=== PATIENT | female | born 2000 | race Caucasian/White ===

== ENCOUNTER 2019-10-30 13:13 | Outpatient (CLI) | payer MEDICAID, SELFPAY ==
--- NOTE | 2019-10-30 13:21 | US_ITS ---
WS: [id number] ULTRASOUND EARLY TECHNIQUE: Transabdominal sonography of the pelvis was performed. Followed by transvaginal sonography to better evaluate the uterus and ovaries. CLINICAL INFORMATION: SUPERVISION OF NORMAL LMP: 08/20/2019 Beta hCG: Unknown. COMPARISON: None. FINDINGS: UTERUS AND GESTATIONAL SAC Intrauterine gestations: Cervix measures 3.4 cm Estimated gestational age: 7w5d Estimated delivery 8 30,020 Yolk sac: 0.2 cm. Christmas rump length (CRL): 1.4 cm. heart motion: 160 BPM. Subchorionic hemorrhage: None. OVARIES Right ovary: Normal. Left ovary: Normal. FREE FLUID None. 2. Estimated gestational age: 7w5d. Estimated delivery 8 30,020 3. Normal cardiac activity. 4. Both ovaries are normal. US/US OB <= 14 weeks fetus [id number] IMPRESSION: 1. Single live intrauterine .
== END 2019-10-30 13:14 | disposition home or self-care (01) ==
LOC: RAD 13:16
PROVIDERS: Family Provider Family Medicine; PCP Family Medicine; Visit Provider Family Medicine
DX: Z34.81 Encounter for supervision of other normal pregnancy, first trimester (principal)
CPT/HCPCS: 76801

== ENCOUNTER 2020-01-25 13:15 | Outpatient (CLI) | payer MEDICAID, SELFPAY ==
--- NOTE | 2020-01-25 13:23 | US_ITS ---
WS: [id number] ULTRASOUND OB COMPLETE TECHNIQUE: Complete ultrasound. CLINICAL INFORMATION: ANATOMY COMPARISON: Ultrasound October 30, 2019 FINDINGS: Cervix measures 4.2 cm Single interuterine gestation is identified with cephalic presentation. Placenta is posterior. Placenta grade 0. Normal amniotic fluid volume. AGA: 20w1d SU by ultrasound: 06/12/2020 Estimated weight: 337 g BDP: 4.6 cm = 19w5d HC: 17.7 cm = 20w1d AC: 14.8 cm = 20w1d FEMUR LENGTH: 3.3 cm = 20w2d Anatomic survey: The nose and lips not well visualized. Anatomic survey is otherwise normal. Normal stomach. Kidneys and bladder are normal. Normal 3 vessel cord. Normal 3 vessel cord insertion. Normal 4 chamber heart. Normal spine. Intracranial contents are normal. Normal posterior fossa and cisterna magna. US/US OB >= 14 weeks fetus [id number] IMPRESSION: 1. Single intrauterine with visualized cardiac activity. AGA 20w1d w ith SU 06/12/2020. 2. Placenta is anterior. No evidence of abruption or previa. 3. Nose and lips not seen. anatomic survey is otherwise normal. Recommen d interval follow-up in 2-3 weeks for additional evaluation. 4. Normal amniotic fluid volume.
== END 2020-01-25 13:16 | disposition home or self-care (01) ==
LOC: RADWPI 13:19
PROVIDERS: Family Provider Family Medicine; PCP Family Medicine; Visit Provider Family Medicine
DX: Z36.89 Encounter for other specified antenatal screening (principal); Z3A.20 20 weeks gestation of pregnancy
CPT/HCPCS: 76805

== ENCOUNTER 2020-03-22 11:04 | Outpatient (CLI) | payer MEDICAID, SELFPAY ==
--- NOTE | 2020-03-22 11:15 | US_ITS ---
WS: [id number] ULTRASOUND OB FOCUSED HISTORY: SUPERVISION NORMAL , MULTIPAROUS COMPARISON: 01/25/2020 Single intrauterine gestation in cephalic presentation. Cervix is closed at 3.7 cm. Placenta is poste rior with no previa or abruption. Placenta grade 1. heart rate at 131 BPM. Additional imaging of the nose and lips demonstrates no abnormality. [place] [id number] IMPRESSION: Normal follow-up ultrasound nose and lips.
== END 2020-03-22 11:05 | disposition home or self-care (01) ==
PROVIDERS: PCP Family Medicine; Visit Provider Family Medicine
DX: Z34.80 Encounter for supervision of other normal pregnancy, unspecified trimester (principal)
CPT/HCPCS: 76816

== ENCOUNTER 2020-05-18 07:37 | Outpatient (CLI) | payer MEDICAID, SELFPAY ==
--- NOTE | 2020-05-18 08:16 | US_ITS ---
WS: [id number] LIMITED OBSTETRICAL ULTRASOUND HISTORY: SUGEY, EFW FOLLOW UP COMPARISON: 03/22/2020, 01/25/2020 and 10/30/2019 Presentation: Cephalic. Cervix: Closed and normal length. Placenta: Posterior and fundal. Grade: 1 HEART: FHR of 150 BPM. measurements: BPD = 9.0 cm = 36w3d HC = 32.1 cm = 36w2d AC = 32.3 cm = 36w1d FL = 7.1 cm = 36w1d SUGEY: 13.1 cm EFW: 2877 g; 65 %. Measurements are internally concordant. Appropriate growth of fetus since the first trimester ultraso und. AGA by ultrasound: 36w2d SU by ultrasound: 06/13/2020 US/US OB limited [id number] IMPRESSION: 1. Single intrauterine gestation of 36 weeks 2 days with an EDC of 06/13/2020. 2. Appropriate growth since the first trimester ultrasound. 3. Estimated weight 2877 g at the 65th percentile.
== END 2020-05-18 07:38 | disposition home or self-care (01) ==
LOC: RAD 07:39
PROVIDERS: PCP Family Medicine; Visit Provider Family Medicine
DX: Z34.93 Encounter for supervision of normal pregnancy, unspecified, third trimester (principal); Z3A.36 36 weeks gestation of pregnancy
CPT/HCPCS: 76815

== ENCOUNTER 2020-06-08 06:11 | Inpatient (IN) | payer MEDICAID, SELFPAY ==
--- NOTE | 2020-05-13 12:42 | ANES.PREANE2 ---
Pre-Anesthetic Assessment Pre-Anesthetic Assessment: Proposed Procedure: Operation Date: 06/08/20 07:20 Proposed Procedures p Section Repeat With Tubal(Not Applicable) - Terence Mayer MD Social: Social History: No alcohol and No tobacco Exam: Pre-Anes Outpt Exam: alert, oriented x 3, clear to auscultation bilaterally and regular rate & rhythm Airway: Submandibular: WNL Cervical ROM: WNL MP: 2 Dentition: Other (teeth ok) History/ROS: No significant complaints Anesthetic Plan: ASA status: 2 Anesthesia: Anesthesia Evaluation, Eval. for regional block, General and Regional (specify below) (SAB or Epidural) Risk of > 500 ml blood loss (7ml/kg in children): Yes, adequate IV access and fluids planned Data Anesthesia Cardiac Studies: No Data to Display
--- NOTE | 2020-05-25 10:09 | ANES.PREANE2 ---
Pre-Anesthetic Assessment Pre-Anesthetic Assessment: Proposed Procedure: Operation Date: 06/08/20 07:00 Proposed Procedures p Section Repeat With Tubal(Not Applicable) - Terence Mayer MD Familial anesthetic complications: None Social: Social History: No alcohol and No tobacco Exam: Pre-Anes Outpt Exam: alert, oriented x 3, clear to auscultation bilaterally and regular rate & rhythm Airway: Cervical ROM: WNL MP: 3 Dentition: Full Anesthetic Plan: ASA status: 2 Anesthesia: Regional (specify below) Other: spinal Risk of > 500 ml blood loss (7ml/kg in children): Yes, adequate IV access and fluids planned Data Anesthesia Cardiac Studies: No Data to Display
[2020-06-08] VITALS (44 sets, daily range): BP systolic 84–142; BP diastolic 51–83; PULSE 72–163; RESP 16–18; TEMP 36.2–37.5; O2SAT 96–100; BMI 32.4
[2020-06-08 07:00] LABS: Basophils # 0.1 10^3/uL (0.0-0.1); Basophils % 0.5 %; Eosinophils # 0.1 10^3/uL (0.0-0.8); Eosinophils % 0.6 %; Hematocrit 34.7 % (37.0-47.0); Hemoglobin 10.8 g/dL (11.5-15.3); Lymphocytes # 3.1 10^3/uL (1.5-6.5); Lymphocytes % 29.6 %; Mean Corpuscular HGB Conc 31.1 g/dL (30.0-36.0); Mean Corpuscular Hemoglobin 25.2 pg (28.0-34.0); Mean Corpuscular Volume 80.9 fL (81-99); Mean Platelet Volume 11.3 fL (7.4-10.4); Monocytes # 0.8 10^3/uL (0.2-0.9); Monocytes % 7.1 %; Neutrophils # 6.51 10^3/uL (1.8-8.0); Nucleated Red Blood Cells % 0 %; Platelet Count 268 10^3/cmm (130-400); Red Blood Count 4.29 10^6/uL (4.1-5.3); Red Cell Distribution Width 18.6 % (12.1-15.1); White Blood Count 10.5 10^3/uL (4.5-13.0)
[2020-06-08] MEDS: lactated ringers 1,000 ML 999 ML IV ×3 (07:04→14:38)
[2020-06-08] MEDS: famotidine 20 mg/2 mL INJ IVP (07:33)
[2020-06-08] MEDS: citric acid-sodium citrate 30 mL UDC PO (07:35)
[2020-06-08] MEDS: metoclopramide 5 mg/mL SDV 2 mL 10 MG IV (07:36)
--- NOTE | 2020-06-08 08:11 | PM.HP ---
Providers/Chief Complaint Admitting Physician: Terence Mayer MD Primary Care Provider: Terence Mayer MD Chief Complaint: C section 06/08/20 History of Present Illness Maria Teresa Taylor is a 19 year old @39.1 weeks gestation by 7-week ultrasound inconsistent with LMP. Her is complicated by history of low transverse section, UTI at 29 weeks, anemia. The patient presents to labor delivery for a scheduled repeat low-transverse section. The patient has been feeling well and denies any chest pains, shortness of breath, headache, fever, nausea, vomiting, leakage of fluid, vaginal bleeding, abdominal pain, dysuria. Medications/Allergies Home Medications Medication Instructions Recorded Confirmed Last Taken Type 19 06/08/20 06/07/20 08:00 History ferrous sulfate [Iron (ferrous 06/08/20 06/07/20 20:00 History sulfate)] Allergies Allergy/AdvReac Type Severity Reaction Status Date / Time No Known Allergies Allergy Verified 06/08/20 06:47 PFSH Acute PFSH: Surgical History (Updated 06/08/20 @ 08:13 by Terence Mayer MD) Previous section Family History (Updated 06/08/20 @ 09:56 by Terence Mayer MD) Sister Lung disease Asthma Social History (Updated 06/08/20 @ 08:13 by Terence Mayer MD) Smoking and tobacco status: never smoked Alcohol intake: never Substance/Drug Use: never Female Reproductive History: : 2 Vitals/I&O/Wt Last Vital Signs Temp 98.2 F 06/08/20 06:00 Resp 16 06/08/20 06:00 BP 142/80 06/08/20 06:00 Weight last 48 hrs Weight 183 lb Physical Exam Narrative: EXAM NARRATIVE: General: Alert and oriented x3 Eyes: Pupils equal round and reactive to light and accommodation Mouth: Mucous membranes moist, pharynx non-erythematous Cardiac: Regular rate and rhythm without murmurs Lungs: Clear to auscultation bilaterally without wheezes, crackles or rhonchi Abdomen: Soft, non-tender, fundus consistent with gestational age Extremities: Trace edema in the bilateral lower extremities Data : 06/08/20 06:53 A&P Assessment and plan (1) Intrauterine : Status: Acute (2) Anxiety: Status: Acute (3) Anemia: Status: Acute Additional A&P Information Maria Teresa Taylor is a 19 year old @39.1 weeks gestation by 7-week ultrasound inconsistent with LMP. Her is complicated by history of low transverse section, UTI at 29 weeks, anemia. The patient presents for a scheduled repeat low-transverse section. She is feeling well at this time. We will proceed with routine care. All questions were answered. Risks and benefits were discussed. The patient is in agreement with the current plan of care. Attestations Medical Necessity Statement*: The patient will be here for greater than two midnights due to routine intrapartum and management of labor and delivery. Coding Level of Care Code Acute [employer] Dispatcher for Chg Fwd Diagnoses Intrauterine Z34.90 Anxiety F41.9 Anemia D64.9
--- NOTE | 2020-06-08 09:18 | P.ANESUD_ITS ---
Pre-Anesthetic Update Pre-Anesthetic Assessment: Date of Surgery/Procedure: 06/08/20 Preop Nikkie gnosis: repeat c section Proposed Procedure: Operation Date: 06/08/20 08:00 Proposed Procedures p Section Repeat With Tubal(Not Applicable) - Terence Mayer MD Any changes to Pre-Anesthetic Assessment?: No Changes from Pre-Anesthetic Assessment: GERD Last Intake: Intake Last Liquid Date 06/07/20 Last Liquid Time 21:00 Last Solid Date 06/07/20 Last Solid Time 18:00 Labs Last 48hrs: Laboratory Results - last 48 hr 06/08/20 06/08/20 06:53 06:53 WBC 10.5 RBC 4.29 Hgb 10.8 L Hct 34.7 L MCV 80.9 L MCH 25.2 L MCHC 31.1 RDW 18.6 H Plt Count 268 MPV 11.3 H Neut % (Auto) 62.0 Lymph % (Auto) 29.6 [place] % (Auto) 7.1 Eos % (Auto) 0.6 Baso % (Auto) 0.5 Neut # (Auto) 6.51 Lymph # (Auto) 3.1 [place] # (Auto) 0.8 Eos # (Auto) 0.1 Baso # (Auto) 0.1 Nucleated RBC % (a uto) 0 Nucleated RBCs # 0.0 Blood Type O Positive Rho(D) Type Positive Vitals: Temperature 98.2 F 06/08/20 06:00 Temperature Source Oral 06/08/20 06:00 Pulse Rhythm 06/08/20 06:21 Pulse Strength 3+ Normal 06/08/20 06:21 Respiratory Rate 16 06/08/20 06:00 Respiratory Effort Non-Labored 06/08/20 06:21 Respiratory Depth Normal 06/08/20 06:21 Respiratory Patter n 06/08/20 06:21 Blood Pressure 142/80 06/08/20 06:00 Blood Pressure Simran n 100 06/08/20 06:00 Blood Pressure Pos ition Sitting 06/08/20 06:00 Oxygen Delivery Me thod 06/08/20 06:21 Exam: Pre-Anes Outpt Exam: alert, oriented x 3, clear to auscultation bilaterally and regular rate & rhythm Additional Exam Findings (including area of procedure): completed prior to c section Cardiac Studies: No Data to Display
--- NOTE | 2020-06-08 09:58 | P.OP_ITS ---
Operative Report Date of procedure: June 08, 2020 Pre-op Diagnosis: repeat c section Pre-op Diagnosis: 1. Intrauterine at 39.1 weeks gestation 2. History of prior low-transverse section 3. UTI at 29 weeks 4. Anemia Post-op Diagnosis: 1. Intrauterine status post repeat low transverse section at 39.1 weeks gestation 2. History of prior low-transverse section 3. UTI at 29 weeks 4. Anemia 5. Delivery of healthy female weighing 7 pounds 8 ounces with Apgars of 9 and 9 Post-op Findings: 1. Intact placenta. 2. Healthy female weighing 7 pounds 8 ounces with Apgars of 9 and 9 Procedure Done: Repeat low transverse section. Removal of prior keloid scar Specimens removed/disposition: Placenta discarded Pathology: none sent Surgeon: Terence Mayer Anesthesia: Other (Spinal) Estimated blood loss (mL): 750 Complications: None Findings: 1. Delivery of healthy infant female weighing 7 pounds 8 ounces with Apgars of 9 and 9 Condition: stable Disposition: floor Brief History: Maria Teresa Taylor is a 19 year old @39.1 weeks gestation by 7-week ultrasound inconsistent with LMP. Her is complicated by history of low transverse section, UTI at 29 weeks, anemia. She presented for a scheduled routine repeat low-transverse section. Procedure: After informed consent was obtained, the patient was taken to the operating room and the patient was prepped and draped in a normal sterile fashion in the dorsal supine position. A spinal epidural was placed and adequate anesthesia was confirmed. At 8:24 AM on 06/08/2020, a Pfannenstiel skin incision was made and carried through to the underlying layer of fascia using a scalpel. The fascial incision was then extended laterally using curved Mayos. The fascia was then grasped with Dewayne clamps and the underlying rectus muscles were dissected off taking care to avoid injury to the underlying tissues. The peritoneum was entered bluntly with one digit. It was then bluntly. The bladder blade was placed and the vesicouterine peritoneum was well below the lower uterine segment of the uterus. The uterine incision was made in the lower uterine segment in a transverse fashion with the scalpel at 8:27 AM. The amniotic membrane was entered bluntly and a small amount of clear fluid was noted. The infant's head delivered atraumatically without difficulty at 8:29 AM on 06/08/2020. There was a nuchal cord that was reduced prior to delivery of the 's body. The mouth and nose were suctioned. The rest of the delivered without difficulty. The was crying immediately upon delivery. The cord was clamped and cut and the was handed to the awaiting pediatric nurses. The placenta was then manually expressed. The uterus was then exteriorized from the abdomen and a wet lap was used to clear the uterus of clots and debris. The bladder blade was reinserted and the uterine incision was closed using 0 chromic in a running locking fashion. A second layer of the same suture was used in the same manner. Excellent hemostasis was obtained. Next the posterior cul-de-sac was inspected and was cleared of any blood. The uterus was then placed back into the abdomen. The gutters were cleared of any further clots and debris and the uterine incision was again inspected and hemostasis was noted. The subfascial tissue was inspected for hemostasis and the peritoneum was re-approximated using 2-0 plain in a running fashion. The fascia was then re-approximated using 0 Vicryl in a running fashion. The subcutaneous tissue was inspected for hemostasis. Pascale's fascia was then re- approximated using 3-0 plain in a running fashion. Good hemostasis was noted. The patient had a significant keloid scar from her prior incision. This was excised and hemostasis was obtained. The subcutaneous tissue was then re-approximated using a subcuticular stitch. The patient tolerated the procedure well and was recovered in stable condition. Estimated blood loss was 750 mL. Urine in the Napoles catheter was clear. The patient was taken to recovery in good condition.
--- NOTE | 2020-06-08 10:24 | PC.NURSE ---
Jose R from anesthesia notified of change in patient's heart rate. No new orders received at this time.
--- NOTE | 2020-06-08 13:58 | PC.NURSE ---
Patient laid back in bed and abdomen palpated. Patient denied feeling any tenderness upon palpation.
--- NOTE | 2020-06-08 14:15 | US_ITS ---
WS: [id number] ULTRASOUND ABDOMEN LIMITED CLINICAL INFORMATION: increased pulse, decreased blood pressure COMPARISON: None. FINDINGS: Four-quadrant abdominal survey. Small to moderate volume free fluid is noted in the right upper quadr ant, right lower quadrant, and left upper quadrant. US/US abdomen limited [id number] IMPRESSION: Small to moderate volume free fluid noted in the right upper quadra nt, right lower quadrant, and left upper quadrant
--- NOTE | 2020-06-08 14:36 | PC.NURSE ---
Ultrasound at patient bedside
--- NOTE | 2020-06-08 14:48 | PC.NURSE ---
Anesthesia notified of Dr. Mayer's request to come to OB department because patient is returning to OR.
--- NOTE | 2020-06-08 14:57 | PM.MISC ---
Miscellaneous Note Purpose of Documentation: I was called to reevaluate the patient secondary to concern that her pulse has suddenly increased and her blood pressures started to decrease. Upon exam the patient denies any chest pains, shortness of breath or significant abdominal pain. She feels like the abdominal pain is what she would expect after a . Upon exam the patient's heart rate is tachycardic with a regular rhythm. Her lungs are clear to auscultation bilaterally. Abdomen is mildly tender without any rebound tenderness. No masses appreciated. Uterus is firm and midline 3 cm below the umbilicus. Extremities with trace edema bilaterally. There is concern that the patient could have bleeding internally. Because of this an ultrasound was ordered stat and there were some pockets of free fluid concerning for internal bleeding. We will return to the OR for an exploratory laparotomy to look for the source of hemorrhage. I spoke with the patient and her regarding these findings and they are in agreement with the current plan of care of exploratory laparotomy. All questions were answered.
[2020-06-08 14:58] LABS: Hematocrit 25.2 % (37.0-47.0); Hemoglobin 7.6 g/dL (11.5-15.3)
--- NOTE | 2020-06-08 15:09 | PC.NURSE ---
Patient transferred to OR by bed.
--- NOTE | 2020-06-08 15:15 | PC.NURSE ---
The patient was brought to the OB OR at 1509. She transferred over to the OR bed with assistance from the anesthesiologist. Once she transferred to the OR bed, OR team began pre-surgery steps including applying leg strap and removing patient's dressing. While these steps were being completed, physician to perform surgery was scrubbing outside of OR. Anesthesia began intubating while physician was scrubbing. A time out was not completed due to when the physician arrived, the patient was no longer able to identify what procedure was being completed. A consent was signed before the patient was taken back to the OR.
[2020-06-08 15:52] LABS: INR 1.32 (0.8-1.2); Partial Thromboplastin Time 25.8 SECONDS (23.9-36.7)
[2020-06-08 15:53] LABS: Fibrinogen 206 mg/dL (174-498)
[2020-06-08 16:09] LABS: D Dimer >= 20.00 ug/mIFEU (0-0.59)
--- NOTE | 2020-06-08 16:12 | ANES.PREANE2 ---
Pre-Anesthetic Assessment Pre-Anesthetic Assessment: Height/Weight: Height 1.6 m Weight 83.007 kg Temp Pulse Resp BP Pulse Ox 98.6 F 163 H 16 92/60 96 06/08/20 14:08 06/08/20 14:08 06/08/20 14:08 06/08/20 14:08 06/08/20 13:38 Preop Diagnosis: repeat c section Proposed Procedure: Operation Date: 06/08/20 08:00 Proposed Procedures p Section Repeat With Tubal(Not Applicable) - Terence Mayer MD Was Beta Rebecca taken within 24 hours: N/A Last intake: Intake Last Liquid Date 06/07/20 Last Liquid Time 21:00 Last Solid Date 06/07/20 Last Solid Time 18:00 Social: Social History: No alcohol and No tobacco Exam: Pre-Anes Outpt Exam: alert, oriented x 3 and clear to auscultation bilaterally Additional Exam Findings (including area of procedure): Hypotensive and Tachycardic (140-160) Airway: Submandibular: WNL Cervical ROM: WNL MP: 1 Pulmonary: Pulmonary: None reported CV/HEM: CV/HEM: Anemia Comments: Acute post cesarian hemorrhage : : None reported Hepatic: Hepatic: None reported GI: GI: GERD and None reported Metabolic: Metabolic: None reported Musc/skel: Musc/skel: None reported Neuropsych: Neuropsych: None reported Anesthetic Plan: ASA status: 3E Meds/Allergies Current Medications: Current Medications Generic Name Dose Route Start Last Admin Trade Name Freq PRN Reason Stop Dose Admin Lactated Ringer's 1,000 mls @ 125 m ls/hr 06/08/20 06:45 06/08/20 11:35 Lactated Ringers IV Not Given .Q8H ISI Dextrose/Lactated Ringer's 1,000 mls @ 125 m ls/hr 06/08/20 10:15 06/08/20 11:36 Dextrose 5%-Lact ated Ringers IV Not Given .Q8H ISI Ketorolac Trometha mine 30 mg 06/08/20 10:15 06/08/20 08:03 Toradol IVP 06/09/20 04:16 Not Given Q6H ISI PFSH Anesthesia PFSH: Surgical History (Updated 06/08/20 @ 08:13 by Terence Mayer MD) Previous section Family History (Updated 06/08/20 @ 09:56 by Terence Mayer MD) Sister Lung disease Asthma Social History (Updated 06/08/20 @ 08:13 by Terence Mayer MD) Smoking and tobacco status: never smoked Alcohol intake: never Substance/Drug Use: never Female Reproductive History: : 2 Data Anesthesia CBC & Chem 7: 06/08/20 14:24 Other Labs: Laboratory Results - last 48 hr 06/08/20 06/08/20 06/08/20 06:53 06:53 06:53 WBC 10.5 RBC 4.29 Hgb 10.8 L Hct 34.7 L MCV 80.9 L MCH 25.2 L MCHC 31.1 RDW 18.6 H Plt Count 268 MPV 11.3 H Neut % (Auto) 62.0 Lymph % (Auto) 29.6 [place] % (Auto) 7.1 Eos % (Auto) 0.6 Baso % (Auto) 0.5 Neut # (Auto) 6.51 Lymph # (Auto) 3.1 [place] # (Auto) 0.8 Eos # (Auto) 0.1 Baso # (Auto) 0.1 Nucleated RBC % (auto) 0 Nucleated RBCs # 0.0 PT INR APTT Fibrinogen Fibrin Degrad Products D-Dimer Blood Type O Positive O Positive Rho(D) Type Positive Positive Antibody Screen Negative Crossmatch See Detail 06/08/20 06/08/20 14:24 15:24 WBC RBC Hgb 7.6 L Hct 25.2 L MCV MCH MCHC RDW Plt Count MPV Neut % (Auto) Lymph % (Auto) [place] % (Auto) Eos % (Auto) Baso % (Auto) Neut # (Auto) Lymph # (Auto) [place] # (Auto) Eos # (Auto) Baso # (Auto) Nucleated RBC % (auto) Nucleated RBCs # PT 16.80 H INR 1.32 H APTT 25.8 Fibrinogen 206 Fibrin Degrad Products Pos, >=40 H D-Dimer >= 20.00 H Blood Type Rho(D) Type Antibody Screen Crossmatch Cardiac Studies: No Data to Display
[2020-06-08 16:19] LABS: Platelet Count 198 10^3/cmm (130-400)
[2020-06-08] MEDS: lactated ringers 1,000 ML 125 ML IV (17:05)
--- NOTE | 2020-06-08 17:05 | PM.OP ---
Operative Report Date of procedure: June 08, 2020 Pre-op Diagnosis: Ex-Lap Pre-op Diagnosis: 1. Exploratory laparotomy after prior low-transverse section 2. Tachycardia with soft blood pressures 3. Free fluid in the abdomen Post-op Diagnosis: 1. Exploratory laparotomy after prior low-transverse section 2. Tachycardia with soft blood pressures 3. Free fluid in the abdomen 4. Postoperative bleeding in the rectus abdominis muscles Post-op Findings: 1. Clots over the rectus abdominis muscles 2. 600 mL blood loss Procedure Done: Exploratory laparotomy Pathology: none sent Surgeon: Terence Mayer Teacher Of [employer] Sight Impaired: Stu Yoon Anesthesia: General Estimated blood loss (mL): 600 IV fluids (mL): 2,100 Urine output (mL): 100 Findings: Approximately 250 mL of blood clot were removed from the layer between the rectus abdominis muscles and the fascial layer. Approximately 200 mL were removed from the abdomen. Another 150 mL was suctioned. Brief History: Maria Teresa was status post repeat low transverse section on the morning of 06/08/2020. The operation started at 8:00 AM. The patient initially was doing very well and there were no complications noted during the surgery or post operatively initially. Around noon, it was noted that her pulse started to increase and her blood pressure gradually started to trend downwards. The patient was given a 1 L fluid bolus. The patient initially responded, however reverted to tachycardia with relative hypotension. I came to evaluate the patient. The patient was asymptomatic and denied lightheadedness, chest pains, shortness of breath, abdominal pain. Her blood pressure was 84/54 with a pulse of 150. She did not have significant pain in her abdomen to palpation. For this reason a stat ultrasound was done to look for signs of intra-abdominal bleeding. Pockets of free fluid were noted. Because of the findings of free fluid and her vital signs being unstable it was felt best to proceed with emergent exploratory laparotomy to look for source of active bleeding. I discussed this with the patient and her and they were in agreement with the plan of care. Procedure: The patient was taken to the operating room at 1509 on 06/08/2020. She was prepped and draped in a normal sterile fashion. General anesthesia was given. The prior incision was opened using suture scissors to cut the prior sutures at 1527 on 06/08/2020. No significant oozing or blood was noted until entering past the fascia, where a large amount of blood clot was noted. This was removed manually. No active bleeding was noted in the rectus abdominis muscles, so the peritoneum was opened. I requested Dr. Yoon to assist me with this case and he assisted with looking for the source of bleeding. The uterus was inspected and no bleeding was noted along the uterine incision or in the round ligaments. The gutters were inspected and blood was noted to be pulling in these bilaterally. The blood and blood clots were removed manually. The abdomen was inspected and no further bleeding was noted. The uterine incision and posterior uterus was again inspected and no bleeding was noted. Bruising was noted on the anterior wall of the peritoneum but not the posterior wall. This was most consistent with the source of the bleeding coming from the rectus abdominis muscles. The rectus muscles were thoroughly inspected and no source of bleeding was identified. After painstakingly evaluating all areas of the abdominis muscles and the uterus and uterine incision again, it was felt that hemostasis was obtained. The peritoneum was closed using 2-0 chromic in a running fashion. The abdominal muscles were again evaluated and no bleeding was noted. The fascia was closed using 0 Vicryl in a running fashion. Hemostasis was noted. The Pascale's fascia was reapproximated using 3-0 plain in a running fashion. Hemostasis was again noted. The skin was closed using 3-0 Vicryl using a subcuticular stitch. Currently the patient is doing well. During the procedure the patient received 2 units of packed red blood cells along with 1 unit of FFP and 1.5 L of crystalloid. The patient's urine output was 100 mL.
--- NOTE | 2020-06-08 17:11 | PM.OP ---
Operative Report Date of procedure: June 08, 2020 Pre-op Diagnosis: Postoperative bleeding after repeat section Post-op diagnosis: same Procedure Done: Intraoperative consult and exploration of abdomen Specimens removed/disposition: None Surgeon: Stu Yoon Anesthesia: General Findings: Hematoma of the rectus muscles and extraperitoneal space bilaterally extending from the incision to the lateral aspect of the anterior abdominal wall and extending for the entire length of the incision and over the bladder area. Brief History: Patient is a 19-year-old female 2, now para 2 at 39 weeks gestation who had a repeat section this morning by Dr. Mayer. The was uneventful per Dr. Mayer. As the day progressed, patient became tachycardic with low blood pressure. Her hemoglobin was noted to have dropped from 10.8 prior to surgery to 7.6 approximately [address] Mayer reported having done a bedside ultrasound and was noting fluid within the abdomen. Because of her symptoms and these findings, he was worried about intra-abdominal bleeding and decided to take her back to the operating room for exploratory surgery. He reported that in the OR he noted clots between the fascia and the muscle. He reported seeing blood within the abdominal cavity. Due to inability to find the source of the bleeding, I was consulted. Procedure: Patient was currently under general anesthesia with abdomen opened with a Pfannenstiel skin incision and abdominal cavity opened. Uterus was currently exteriorized. Uterine incision was thoroughly inspected. No active signs of bleeding noted. Incision was intact with sutures present. Broad ligament was inspected with no hematoma noted within either broad ligament. Posterior cul-de-sac was inspected with no hematoma noted within the retroperitoneal space. Uterus was returned to the abdomen. Small amount of blood was evacuated from the gutters bilaterally. Uterine incision was reinspected. It was irrigated and small superficial area of bleeding was noted and controlled with electrocautery. Anterior abdominal wall was inspected. Hematoma of the anterior abdominal wall was present along the right and left sides of the incision extending the entire length of the incision. This was extending to the lateral aspects of the abdominal wall and was including the bladder area. Bruising within the rectus muscles bilaterally was present. The peritoneal edges, rectus muscles, and under fascial area was all inspected with no bleeding site identified. No areas of extrafascial bleeding identified. The rectus muscles were thoroughly irrigated with no bleeding noted. I discussed with Dr. Mayer in the OR that this appeared to have been bleeding most likely within the rectal muscle layer based upon location of clots and hematoma formation. I discussed with him that since no site of active bleeding was identified, I did not recommend further exploration into the rectus muscles or the extraperitoneal space. At this point, the case was turned back over to Dr. Mayer who closed the abdomen.
[2020-06-08 19:37] LABS: Basophils % 0.3 %; Hematocrit 24.9 % (37.0-47.0); Hemoglobin 7.8 g/dL (11.5-15.3); Lymphocytes # 1.4 10^3/uL (1.5-6.5); Lymphocytes % 12.9 %; Mean Corpuscular HGB Conc 31.3 g/dL (30.0-36.0); Mean Platelet Volume 11.1 fL (7.4-10.4); Monocytes # 0.8 10^3/uL (0.2-0.9); Monocytes % 7.4 %; Neutrophils # 8.24 10^3/uL (1.8-8.0); Nucleated Red Blood Cells % 0 %; Platelet Count 139 10^3/cmm (130-400); Red Cell Distribution Width 17.7 % (12.1-15.1); White Blood Count 10.4 10^3/uL (4.5-13.0)
[2020-06-08 19:52] LABS: INR 3.31 (0.8-1.2)
[2020-06-08] MEDS: ketorolac 30 mg/mL INJ IVP (19:56)
[2020-06-08 20:02] LABS: D Dimer 13.32 ug/mIFEU (0-0.59)
[2020-06-08 20:37] LABS: Fibrinogen 206 mg/dL (174-498); Partial Thromboplastin Time 25.8 SECONDS (23.9-36.7)
[2020-06-08] MEDS: clindamycin 900 MG/50 ML PREMIX 100 MG IV (20:42)
[2020-06-09] VITALS (8 sets, daily range): BP systolic 94–124; BP diastolic 56–84; PULSE 73–100; RESP 14–17; TEMP 36.8–37.4; O2SAT 97–98
[2020-06-09] MEDS: lactated ringers 1,000 ML 125 ML IV (02:05)
[2020-06-09] MEDS: ketorolac 30 mg/mL INJ IVP (02:08)
[2020-06-09 04:37] LABS: Basophils % 0.5 %; Eosinophils % 0.4 %; Hematocrit 25.8 % (37.0-47.0); Hemoglobin 8.4 g/dL (11.5-15.3); Lymphocytes # 2.6 10^3/uL (1.5-6.5); Lymphocytes % 30.4 %; Mean Corpuscular HGB Conc 32.6 g/dL (30.0-36.0); Mean Corpuscular Hemoglobin 27.4 pg (28.0-34.0); Mean Platelet Volume 11.1 fL (7.4-10.4); Monocytes # 0.7 10^3/uL (0.2-0.9); Monocytes % 7.8 %; Neutrophils # 5.17 10^3/uL (1.8-8.0); Neutrophils % 60.5 %; Nucleated Red Blood Cells % 0 %; Platelet Count 125 10^3/cmm (130-400); Red Blood Count 3.07 10^6/uL (4.1-5.3); Red Cell Distribution Width 17.7 % (12.1-15.1); White Blood Count 8.5 10^3/uL (4.5-13.0)
[2020-06-09] MEDS: HYDROcodone-acetaminophen 5-325 mg Tablet PO (04:48)
[2020-06-09 04:59] LABS: Alanine Aminotransferase 8 U/L (0-33); Albumin Level 2.6 g/dL (3.5-5.2); Alkaline Phosphatase 67 IU/L (35-105); Aspartate Amino Transferase 32 U/L (0-32); Blood Urea Nitrogen 7 mg/dL (6-20); Carbon Dioxide 22 mmol/L (22-29); Chloride 108 mmol/L (98-107); Globulin 1.7 g/dL (1.3-4.6); Glomerular Filtration Rate 157.3 mL/min (90-130); Glucose 86 mg/dL (65-115); Osmolality Calculated 277 mOsm/kg (285-295); Sodium 136 mmol/L (136-145); Total Bilirubin 0.4 mg/dL (0.15-1.2); Total Protein 4.3 g/dL (6.6-8.7)
[2020-06-09 05:04] LABS: Slide Review Slide Review Perform
[2020-06-09 05:07] LABS: INR 1.09 (0.8-1.2)
[2020-06-09 05:08] LABS: Partial Thromboplastin Time 25.2 SECONDS (23.9-36.7)
[2020-06-09 05:09] LABS: Fibrinogen 266 mg/dL (174-498)
[2020-06-09 05:19] LABS: D Dimer 8.01 ug/mIFEU (0-0.59)
--- NOTE | 2020-06-09 08:41 | PM.PN ---
Subjective Subjective: Interval history: The patient is feeling better today. Her pain is improving. She is ambulating and would like to have her IVs removed. She is tolerating food by mouth. Her bleeding is decreasing well. Vitals/I&O/Wt Last Vital Signs Temp 98.6 F 06/09/20 04:05 Pulse 73 06/09/20 04:05 Resp 16 06/09/20 04:05 BP 109/61 06/09/20 04:05 Pulse Ox 98 06/09/20 04:05 06/08/20 06/09/20 06/09/20 22:59 06:59 14:59 Intake Total 1596 / 5496 2204.75 / 7700.75 Output Total 300 / 8100 1000 / 9100 Balance 1296 / -2604 1204.75 / -1399.25 Weight last 48 hrs Weight 183 lb Physical Exam Narrative: EXAM NARRATIVE: General: Alert and oriented x3 Eyes: Pupils equal round and reactive to light and accommodation Mouth: Mucous membranes moist, pharynx non-erythematous Cardiac: Regular rate and rhythm without murmurs Lungs: Clear to auscultation bilaterally without wheezes, crackles or rhonchi Abdomen: Soft, non-tender, fundus consistent with gestational age Extremities: Trace edema in the bilateral lower extremities Urinary Catheter Management^: Napoles Latex: Cath Placed During This Visit: yes Reason for Continuing Indwelling Catheter: Perioperative Use in Selected Surgeries Urinary Catheter Date of Insertion: 06/08/20 Urinary Catheter Time of Insertion: 08:15 Data : 06/09/20 16:15 06/09/20 04:20 A&P Assessment and plan (1) Intrauterine : Status: Acute (2) Anxiety: Status: Acute (3) Anemia: Status: Acute Additional A&P Information The patient is doing well at this time and is showing no further signs of complications. Her bleeding is improving well. Her pain is well controlled. Her platelets are increasing as is her hemoglobin. We will go ahead and remove her IVs as she is more stable at this time. Advance diet as tolerated. Ambulate with caution initially. All questions were answered. Possible discharge home tomorrow depending on course. Attestations Medical Necessity Statement*: The patient continues need inpatient care after section. Her stay will cross 2 midnights. Coding Level of Care Code Acute Curtain Drier for [facility] Fwd Diagnoses Intrauterine Z34.90 Anxiety F41.9 Anemia D64.9
[2020-06-09] MEDS: docusate sodium 100 mg Capsule PO ×2 (08:50→18:48)
[2020-06-09] MEDS: prenatal vitamin Capsule 1 CAP PO (08:50)
[2020-06-09] MEDS: ferrous sulfate EC 325 mg Tablet PO ×2 (08:50→18:48)
--- NOTE | 2020-06-09 11:17 | ANE.PACU2 ---
Inpatient post-anesthesia follow up: Airway intact: Yes Vital signs: Temperature 98.4 F Pulse Rate 81 Respiratory Rate 17 Blood Pressure 104/64 Pulse Oximetry 98 Oxygen Delivery Me thod Room Air Oxygen Flow Rate Fraction of Inspir ed Oxygen Hydration adequate: Yes Nausea and vomiting: No Pain level: 3 Mental status: Baseline Additional Comments: mild bruising at spinal site, up and walking, no numbness, no headaches
--- NOTE | 2020-06-09 11:59 | PC.NURSE ---
Patient ambulated 1 lap in hallway, tolerated well. Denied feeling any dizziness, weakness or lightheadedness.
[2020-06-09 16:29] LABS: Basophils % 0.3 %; Eosinophils # 0.1 10^3/uL (0.0-0.8); Eosinophils % 0.5 %; Hematocrit 31.1 % (37.0-47.0); Hemoglobin 9.9 g/dL (11.5-15.3); Lymphocytes # 2.1 10^3/uL (1.5-6.5); Lymphocytes % 21.6 %; Mean Corpuscular HGB Conc 31.8 g/dL (30.0-36.0); Mean Platelet Volume 10.9 fL (7.4-10.4); Monocytes # 0.7 10^3/uL (0.2-0.9); Neutrophils # 6.78 10^3/uL (1.8-8.0); Neutrophils % 70.3 %; Nucleated Red Blood Cells % 0 %; Platelet Count 158 10^3/cmm (130-400); Red Blood Count 3.66 10^6/uL (4.1-5.3); Red Cell Distribution Width 18.4 % (12.1-15.1); White Blood Count 9.7 10^3/uL (4.5-13.0)
[2020-06-10 04:16] VITALS: BP 111/66; PULSE 75; RESP 16; TEMP 36.8; O2SAT 97
[2020-06-10] MEDS: prenatal vitamin Capsule 1 CAP PO (10:07)
[2020-06-10] MEDS: ferrous sulfate EC 325 mg Tablet PO (10:07)
[2020-06-10] MEDS: docusate sodium 100 mg Capsule PO (10:07)
[2020-06-10 10:09] VITALS: BP 122/78; PULSE 83; RESP 16; TEMP 36.7
--- NOTE | 2020-06-10 12:26 | P.DS_ITS ---
Discharge Providers Date of Admission: 06/08/20 06:11 Date of Discharge: June 10, 2020 Attending Provider at Admission: Terence Mayer MD Attending Provider at Discharge: Terence Mayer MD Primary Care Provider: Terence Mayer MD Diagnoses at Discharge Discharge Diagnosis (1) Intrauterine : Status: Resolved (2) Anxiety: Status: Acute (3) Anemia: Status: Acute Other Information Additional DC diagnoses/information: 1. Intrauterine status post repeat low transverse section at 39.1 weeks gestation. 2. Anemia 3. UTI during third trimester 4. Status post exploratory laparotomy secondary to postoperative bleeding 5. hemorrhage status post transfusion of blood products Reason for Visit Reason for Visit: C section 06/08/20 Hospital Course Hospital Course: The patient presented for a scheduled repeat low-transverse section. The patient did well initially after her section, however a few hours after delivery she suddenly had tachycardia associated with relative hypotension. There was concern for intra-abdominal bleeding and a stat bedside ultrasound showed signs of free fluid. An exploratory laparotomy showed signs of intra-abdominal hemorrhage with blood clots specifically over the rectus abdominis muscles. Please see operative report for full details. The patient received 3 units of packed red blood cells with 2 units of fresh frozen plasma. The patient's DIC panel was followed and showed signs of improvement. The patient's hemoglobin also has been improving well. Prior to discharge the patient's hemoglobin is 9.9. The patient currently feels well and her pain is well controlled. Her bleeding is very little. Patient shows no further signs of complication at this time. We had a lengthy discussion regarding the possible causes as well as the care for her incision and complications to watch for. We discussed section care in detail. We will follow-up with the patient in clinic early next week to be sure that she is continuing to improve. All questions were answered. Physical Exam Narrative: EXAM NARRATIVE: General: Alert and oriented x3 Cardiac: Regular rate and rhythm without murmurs Lungs: Clear to auscultation bilaterally without wheezes, crackles or rhonchi Abdomen: Soft, mild to moderate diffuse tenderness without rebound tenderness. Uterus is firm and well below the umbilicus. Extremities: +1 pitting edema in the bilateral lower extremities Urinary Catheter Management^: Napoles Latex: Cath Placed During This Visit: yes, but has since been removed by the nurse Reason for Continuing Indwelling Catheter: Decision to DC Catheter Urinary Catheter Date of Insertion: 06/08/20 Urinary Catheter Time of Insertion: 08:15 Date Urinary Catheter Removed: 06/09/20 Time Urinary Catheter Discontinued: 12:01 Discharge Data Data Completed and Pending: Completed Studies During Hospitalization Category Date Time Status US abdomen limite d [id number] Stat Ultrasound 06/08/20 14:15 Completed Pending at discharge Category Date Time Status ABO/Rh Type Stat Lab 06/08/20 06:53 Results Complete Crossmat ch Stat Lab 06/08/20 06:53 Results Frozen Plasma FZ <24 1st Cont Stat Lab 06/08/20 06:53 Results PACKED CELLS [Gen kocyte Reduced RBC ] Routine Lab 06/08/20 06:53 Results Retype for Patiet s ABO/Rh Routine Lab 06/08/20 07:26 Ordered Type and Screen R outine Lab 06/08/20 06:53 Results Labs from last 24 hours 06/09/20 16:15 WBC 9.7 RBC 3.66 L Hgb 9.9 L Hct 31.1 L MCV 85.0 MCH 27.0 L MCHC 31.8 RDW 18.4 H Plt Count 158 MPV 10.9 H Neut % (Auto) 70.3 Lymph % (Auto) 21.6 [place] % (Auto) 7.0 Eos % (Auto) 0.5 Baso % (Auto) 0.3 Neut # (Auto) 6.78 Lymph # (Auto) 2.1 [place]wood # (Auto) 0.7 Eos # (Auto) 0.1 Baso # (Auto) 0.0 Nucleated RBC % (a uto) 0 Nucleated RBCs # 0.0 Vitals: Last Vital Signs Temp 98.0 F 06/10/20 10:09 Pulse 83 06/10/20 10:09 Resp 16 06/10/20 10:09 BP 122/78 06/10/20 10:09 Pulse Ox 97 06/10/20 04:16 Discharge Plan Discharge Patient Disposition: Home Condition: Stable Prescriptions: New ibuprofen 800 mg Tablet 800 mg PO TID Qty: 60 RF: 0 oxycodone-acetaminophen 5-325 mg Tablet 1 tab PO Q6H PRN (Reason: Moderate To Severe Pain) Qty: 20 RF: 0 Continued 19 1 tab PO DAILY RF: 0 Changed Iron (ferrous sulfate) 325 mg (65 mg iron) Tablet 325 mg PO BIDWMEAL Qty: 60 RF: 0 Discharge Orders: Discharge Order (Routine); Ordered 06/10/20 Ordered By: Terence Mayer Referrals: Terence Mayer MD [Primary Care Provider] - 4-7 days (Follow up with Leyla on Saturday 3:15pm ) Discharge Diet: Usual diet Discharge Activity: Limit activity as instructed Patient Instructions: OB WHC, OB Discharge Report, OB Food/Drug Interaction Guide, OB Home Care Activity Restrictions/Additional Instructions: Given concern for infection in your incision site, please seek immediate medical attention. No baths or swimming for 6 weeks. Showers are okay. Nothing per vagina for 6 weeks. Discharge Date/Time: 06/10/20 14:00 Discharge Attestations Time Spent in Discharge Care*: greater than 30 min Quality Metrics Clinical Quality Measures During this hospital stay, did patient experience: None Coding Level of Care Code Acute Educational Assistant Teacher for [facility] Fwd Diagnoses Intrauterine Z34.90 Anxiety F41.9 Anemia D64.9
[2020-06-10 13:45] VITALS: BP 115/78; PULSE 71; RESP 16; TEMP 36.7
== END 2020-06-10 14:00 | disposition home or self-care (01) | DRG 787 ==
PROVIDERS: Admitting Provider Family Medicine; PCP Family Medicine; Visit Provider Family Medicine
PROC: 10D00Z1 Extraction of Products of Conception, Low, Open Approach (ICD-10-PCS; CPT 59514; principal; 2020-06-08 08:00)
DX: O34.211 Maternal care for low transverse scar from previous cesarean delivery (principal); O72.1 Other immediate postpartum hemorrhage; O99.02 Anemia complicating childbirth; D64.9 Anemia, unspecified; O99.344 Other mental disorders complicating childbirth; F41.9 Anxiety disorder, unspecified; O69.2XX0 Labor and delivery complicated by other cord entanglement, with compression, not applicable or unspecified; Z3A.39 39 weeks gestation of pregnancy; Z37.0 Single live birth; R00.0 Tachycardia, unspecified; I95.81 Postprocedural hypotension; O90.2 Hematoma of obstetric wound; O90.89 Other complications of the puerperium, not elsewhere classified
CPT/HCPCS: 12345; 36415; 36430; 51702; 59025; 59409; 76705; 80053; 85014; 85018; 85025; 85049; 85362; 85378; 85384; 85610; 85730; 86850; 86900; 86920; 86927; 96374; 96375; 98960; J0690; J1100; J1200; J1885; J2250; J2274; J2370; J2405; J2765; J3010; J3490; J7030; P9016; P9017

== ENCOUNTER → 2021-06-26 12:08 | Outpatient (BNVA) | payer MEDICAID, SELFPAY | PROVIDERS: PCP Family Medicine; Visit Provider Nurse Practitioner Family | DX: Z20.822 Contact with and (suspected) exposure to COVID-19 (principal) | CPT/HCPCS: 87635 ==